=== PATIENT | female | born 1995 | race Caucasian/White ===

== ENCOUNTER 2019-02-03 15:01 | Emergency (ER) | payer OTHER ==
[2019-02-03 15:11] VITALS: RESP 18; TEMP 97.8
--- NOTE | 2019-02-03 16:13 | C.PDOC ---
History Of Present Illness 23 y/o female c/o pain to left proximal thumb/snuffbox/wrist area for 2-3 days, no trauma, worse with movement of thumb, no numbness or tingling. pt using wrist brace, not taking anything for pain. no fever, no swelling. Time Seen by Provider: 02/03/19 15:22 Chief Complaint (Nursing): Finger,Hand,&Wrist History Per: Patient History/Exam Limitations: no limitations Onset/Duration Of Symptoms: Days (2-3) Current Symptoms Are (Timing): Still Present Quality: "Pain" Past Medical History Reviewed: Historical Data, Nursing Documentation, Vital Signs Vital Signs: Last Vital Signs Temp 97.8 F 02/03/19 15:08 Pulse 69 02/03/19 15:08 Resp 18 02/03/19 15:08 BP 118/75 02/03/19 15:08 Pulse Ox 100 02/03/19 15:08 Primary Care Provider: FAMILY PROVIDER,NO - Medical History PMH: No Chronic Diseases Surgical History: No Surg Hx Family History: States: Unknown Family Hx - Social History Hx Alcohol Use: No Hx Substance Use: No - Immunization History Hx Tetanus Toxoid Vaccination: No Hx Influenza Vaccination: No Hx Pneumococcal Vaccination: No Review Of Systems Musculoskeletal: Positive for: Hand Pain (left snuffbox tenderness) Neurological: Negative for: Weakness, Numbness Physical Exam - Physical Exam Appears: Non-toxic, No Acute Distress Skin: Normal Color, Warm, Dry Extremity: Tenderness (radial aspect of the left first metacarpal over the navicular), Capillary Refill (<2 seconds), No Deformity, No Swelling, No Other (erythema or warmth) Pulses: Left Radial: Normal, Right Radial: Normal Neurological/Psych: Oriented x3, Normal Speech, Normal Cognition, Normal Motor, Normal Sensation ED Course And Treatment - Laboratory Results Urine POC: Negative O2 Sat by Pulse Oximetry: 100 (in RA) Pulse Ox Interpretation: Normal - Other Rad left thumb X-Ray: Viewed By Me, Read By Radiologist Interpretation: Normal left wrist radiographs. No radiographic evidence of fracture appreciated. If strong clinical suspicion of navicular pathology is present, consider elective follow-up MRI left wrist imaging for more sensitive assessment. Orthopedic Time Performed: 17:23 Time Out: Side verified, Site verified, Patient ID confirmed Procedure: Splint Type: Thumb spica Location: Left Consent obtained: Verbal Performed by: Mid-level Provider (done by cp, checked by me) Diagnosis: Other (tendonitis) Location: Left Other:: wrist Medical Decision Making Medical Decision Making: Impression: 23 year old female with left snuffbox area pain for 2-3 days, worse with thumb movement; likely tendon related, will get xray. . Initial Plan: Motrin PO Left Wrist X-ray POC U-preg xray neg for fx, thumb spica s;plint applied, pt referred to ortho clinic Disposition Counseled Patient/Family Regarding: Studies Performed, Diagnosis, Need For Followup, Rx Given - Disposition Referrals: Orthopedic Clinic at [Outside] [facility] [Outside] [facility] [Outside] Disposition: HOME/ ROUTINE Disposition Time: 17:22 Condition: GOOD Additional Instructions: Wear splint for comfort, can remove to bathe. Follow up with orthopedic clinic (part of [facility]) ; call for appointment. Ibuprofen for pain. cold compresses several times a day. Avoid heavy use of left hand, Prescriptions: Ibuprofen [Motrin] 600 mg PO TID #30 tab Instructions: Tendonitis (DC) Forms: [facility] (Tai[place]ese), General Discharge Instructions - Clinical Impression Clinical Impression: Tendonitis of wrist, left - PA / [employer]NER / Resident Statement MD/DO has reviewed & agrees with the documentation as recorded. (Lila Rodriguez) - Scribe Statement The provider has reviewed the documentation as recorded by the Scribe (Lila Rodriguez) All medical record entries made by the Scribe were at my direction and personally dictated by me. I have reviewed the chart and agree that the record accurately reflects my personal performance of the history, physical exam, medical decision making, and the department course for this patient. I have also personally directed, reviewed, and agree with the discharge instructions and disposition.
--- NOTE | 2019-02-03 16:50 | RAD ---
Date of service: 02/03/2019 PROCEDURE: Left Wrist Radiographs. HISTORY: scaphoid tendernss COMPARISON: None. TECHNIQUE: 4 views obtained. FINDINGS: BONES: Normal. No fracture. JOINTS: Normal. No dislocation. SOFT TISSUES: Normal. OTHER FINDINGS: None. IMPRESSION: Normal left wrist radiographs. No radiographic evidence of fracture appreciated. If strong clinical suspicion of navicular pathology is present, consider elective follow-up MRI left wrist imaging for more sensitive assessment.
[2019-02-03 17:04] VITALS: BP 106/70; PULSE 67
[2019-02-03 17:16] VITALS: O2SAT 100
== END 2019-02-03 17:35 | disposition home or self-care (01) ==
LOC: C.ER 15:01
DX: M77.9 Enthesopathy, unspecified (principal)